=== PATIENT | female | born 1990 | race African-American/Black ===

== ENCOUNTER 2017-04-12 12:36 | Emergency (ER) | payer OTHER ==
[~2017-04-12] VITALS: Ht 175.3 cm; Wt 76.8 kg
[2017-04-12 12:37] VITALS: BP 124/70
[2017-04-12] MEDS ORDERED: LIDOCAINE W/EPINEPHRINE 1% 20ML VIAL SC ONE (14:15)
[2017-04-12] MEDS ORDERED: BACT800T5 PO (14:25)
[2017-04-12] MEDS ORDERED: NEOSPORIN OINT 0.9 GM PKT (FLOOR STOCK) As Ordered ONE (14:32)
== END 2017-04-12 14:36 | disposition home or self-care (01) ==
LOC: M ED 12:36
DX: J34.0 Abscess, furuncle and carbuncle of nose (principal)

== ENCOUNTER 2018-12-28 10:08 | Inpatient (IN) | payer OTHER ==
[~2018-12-28] VITALS: Ht 175.3 cm; Wt 86.0 kg
[2018-12-28] VITALS (41 sets, daily range): BP systolic 107–219; BP diastolic 55–88
[~2018-12-28 10:08] MED LIST: BACT800T5 PO
[2018-12-28] MEDS ORDERED: PRENTAB9 PO (10:24)
[2018-12-28] MEDS ORDERED: SERT25TA85 PO (10:24)
[2018-12-28] MEDS ORDERED: LACTATED RINGER'S 1000 ML IV ONE (11:30)
[2018-12-28] MEDS ORDERED: FENTANYL 2MCG/ML ROPIVACAINE 0.2% IN 0.9% NACL 100ML IVBAG As Ordered ONE (11:53)
[2018-12-28 12:11] LABS: HEMOGLOBIN 13.7 g/dl (12.0-15.5); MEAN CORPUSCULAR HEMOGLOBIN 27.4 pg (27.0-33.0); MEAN CORPUSCULAR HGB CONC 32.6 g/dl (32.0-36.5); PLATELET COUNT, AUTOMATED 158 10^3/uL (150-450); WHITE BLOOD COUNT 5.3 10^3/uL (4.0-10.0)
[2018-12-28] MEDS: LR 1,000 ML IV SCH ×2 (13:00→19:16)
--- NOTE | 2018-12-28 14:26 | HPE ---
DATE OF ADMISSION: 12/28/2018 This lady is a 28-year-old, 2, para 1, last menstrual period (LMP) 03/29/2018, estimated date of confinement (EDC) 01/03/2019, at 39 and 1 weeks of gestation with contractions since so 0400 this morning. They are 4 minutes apart, moderate intensity, loss of fluid and no vaginal bleeding. RISK FACTORS: She has anxiety, depression and her is deployed. PAST HISTORY: In 2008, at 37 weeks, had a spontaneous vaginal delivery, male, 8 pounds 3 ounces. LABS: O+. HIV negative. Hepatitis negative. RPR negative. Rubella immune. Varicella immune. Pap normal. Urine negative. Gonorrhea and chlamydia are negative. 1-hour glucose was 95. GBS is negative. Her blood pressure is 123/73, respirations 18, pulse 84, temperature 97.8. Urine 1.015, pH 6 and trace of blood. On examination, she appears distressed. Category 1 strip. moderate intensity, every 4 minutes. Symphysis fundus height is 40. Four quadrant bowel sounds. heart is 140. On pelvic examination, she is 4 cm, 100% effaced, -1 station and with bulging membranes. Our plan of management is to admit, category 1 strip, epidural as needed and anticipate progression. We discussed counseling regarding vaginal delivery, which is delivery through the vagina, possible assistance of forceps or vacuum if needed, for maternal indications forceps and vacuum device can assist with vaginal delivery when normal pushing efforts cannot achieve delivery on their own or when delivery is needed for emergency for baby's well-being, medications used to induce or augment labor in order to achieve vaginal delivery, episiotomy may be required to help baby deliver vaginally, you may also require repair of any lacerations or tears of your vagina or vulva that can occur at the time of delivery, in some cases emergencies can arise such as emergency section so quick that consent signs are not being able to be signed, however provider will discuss the emergency and necessity of section before they proceed for the safety of the mother and baby than continuing labor and only performed when clinically indicated. Risks of vaginal delivery include but not limited to bleeding, infection, injury to the vagina, pelvic structures, injury to baby, damage to the uterus, reactions to anesthesia, uterine rupture, risk of hysterectomy for life-threatening bleeding conditions or . Medications used to induce or augment labor with increase risk of infection, tachysystole, uterine rupture, heart rate abnormalities, need for emergency section or possibly hysterectomy or hemorrhage. With the risks and benefits explained and the risk of using vacuum or forceps where baby can get scratches, hematomas on the head or intracranial bleed the patient expressed understanding of same and is anxious to proceed. We spent 30 minutes discussing and answering all questions.
[2018-12-28] MEDS ORDERED: LACTATED RINGER'S 1000 ML IV PRN (14:30)
[2018-12-28] MEDS ORDERED: EPIDURAL/PCA KEYS XX PRN (14:30)
[2018-12-28] MEDS ORDERED: EPIDURAL COMMENT XX SCH (14:30)
[2018-12-28] MEDS ORDERED: FENTANYL/ROPIVACAINE/NACL BAG 100 ML EPIDURAL SCH (14:30)
[2018-12-28] MEDS ORDERED: diphenhydrAMINE INJ 50MG/ML VIAL (J1200) IV PRN (14:30)
[2018-12-28] MEDS ORDERED: REFRIGERATOR IV KEYS XX PRN (14:30)
[2018-12-28] MEDS ORDERED: ONDANSETRON 4MG/2ML VIAL (J2405) IV PRN (14:30)
[2018-12-28] MEDS ORDERED: NALOXONE INJ 0.4 MG/1 ML VIAL (J2310) IV PRN (14:30)
[2018-12-28] MEDS ORDERED: ePHEDrine SULFATE 25 MG/5 ML(5MG/ML) SYRINGE IV PRN (14:30)
[2018-12-28] MEDS ORDERED: OXYTOCIN 30 UNITS IN 0.9% NaCl 500ML IV BAG (J2590) As Ordered ONE ×2 (15:27→17:52)
--- NOTE | 2018-12-28 16:54 | IPN ---
DATE: 12/28/2018 This lady is a 28-year-old 2, para 1 admitted with contractions 4 minutes apart, moderate intensity. She had a spontaneous rupture of membranes at 1430 hours, clear liquor, contractions were a 3 minutes, moderate. She requested an epidural, which was placed but is not effective, and it needs to be readjusted. We will reevaluate this lady in 2 hours time.
--- NOTE | 2018-12-28 16:56 | IPN ---
DATE: 12/28/2018 This lady was admitted for contractions, had eventually spontaneous rupture of membranes, an epidural which was ineffective, she was topped up, still ineffective and reexamined her at 1600 hours. She is presently 9 cm, 0 station, category one strip, still having difficulty with the epidural. We are going to request that anesthesia come up and reevaluate and make her as comfortable as possible. The patient is not requiring any Pitocin, doing well on her own outside of the epidural not working, is safe to proceed,
[2018-12-28 17:18] LABS: CORD GAS HCO3 A 24.3 MEQ/L; CORD GAS TCO2 A 25.7 MEQ/L
[2018-12-28 17:19] LABS: CORD GAS ABE A -1.6; CORD GAS PCO2 A 45.2 mmHg; CORD GAS PH A 7.348 UNITS; CORD GAS PO2 A 10.6 mmHg
[2018-12-28 17:20] LABS: CORD GAS O2 SAT A < 15.0 %
[2018-12-28 17:22] LABS: CORD GAS ABE V -0.4; CORD GAS HCO3 V 22.6 MEQ/L; CORD GAS O2 SAT V 65.9 %; CORD GAS PCO2 V 32.9 mmHg; CORD GAS PH V 7.455 UNITS; CORD GAS PO2 V 25.8 mmHg; CORD GAS SBC V 23.3 MEQ/L; CORD GAS TCO2 V 23.6 MEQ/L
--- NOTE | 2018-12-28 17:38 | DN ---
DATE: 12/25/2018 This lady is a 28-year-old 2, para 1 admitted in active labor. She had an epidural in place, had over three pushes a spontaneous vaginal delivery of a male 8 pounds 13 ounces, 4010 grams, scores of 9 and 9 at one and five minutes respectively. Terminal meconium was noted at delivery. Placenta delivered spontaneously thereafter. Three vessels in the cord. Membranes and tissues intact. The vagina, anterior, posterior lateral palmer were intact. The cervix, which she must have been occiput posterior, had a thick bruised anterior lip, which came right down to the introitus. Uterus contracted well down on Pitocin. Arterial pH was 7.34, base excess -1.6, venous pH 7.45, base excess -0.4. The patient and baby tolerated procedure well.
[2018-12-28] MEDS ORDERED: OXYTOCIN INJ 10 UNITS/ML VIAL (J2590) As Ordered ONE (17:52)
[2018-12-28] MEDS ORDERED: ACETAMINOPHEN 500 MG TAB PO PRN (18:00)
[2018-12-28] MEDS ORDERED: OXYTOCIN INJ 10 UNITS/ML VIAL (J2590) IV ONE ×2 (18:00→18:15)
[2018-12-28] MEDS ORDERED: DIBUCAINE 1% OINTMENT 30GM TOP PRN (18:00)
[2018-12-28] MEDS ORDERED: ANUSOL HC CREAM 30GM TOP PRN (18:00)
[2018-12-28] MEDS ORDERED: MEASLES,MUMPS,RUBELLA VACCINE INJ (MMR-II) (90707) SC SCH (18:00)
[2018-12-28] MEDS ORDERED: DOCUSATE SODIUM 100 MG CAP PO PRN (18:00)
[2018-12-28] MEDS ORDERED: RHOGAM 300 MCG (1500 IU) INJ (J2790) IM SCH (18:00)
[2018-12-28] MEDS ORDERED: MOM 30ML SUSPENSION UDC PO PRN (18:00)
[2018-12-28] MEDS ORDERED: METHYLERGONOVINE MALEATE 0.2 MG TAB PO PRN (18:00)
[2018-12-28] MEDS ORDERED: ACETAMINOPHEN TAB 650MG DOSE (2X325MG) PO PRN (18:00)
[2018-12-28] MEDS ORDERED: IBUPROFEN 800 MG TAB PO PRN (18:00)
[2018-12-28] MEDS ORDERED: IBUPROFEN 600 MG TAB PO PRN (18:00)
[2018-12-28] MEDS ORDERED: OXYTOCIN DRIP 30 UNITS in APPROPRIATE DILUENT 1 EA IV ONE ×4 (18:15)
--- NOTE | 2018-12-28 18:47 | IPN ---
DATE: 12/28/2018 This patient requested circumcision of her male after discussing risks and benefits of circumcision, medical, nonmedical indications, penile block and aftercare. Expressed understanding of penile block, aftercare and bleeding, signed the consent form. All questions were answered. 20-minute discussion. Await clearance by the wrapper hand.
[2018-12-29 05:21] VITALS: BP 111/54
[2018-12-29 07:20] LABS: HEMATOCRIT 37.6 % (36.0-47.0); HEMOGLOBIN 12.6 g/dl (12.0-15.5); MEAN CORPUSCULAR HEMOGLOBIN 28.4 pg (27.0-33.0); MEAN CORPUSCULAR HGB CONC 33.5 g/dl (32.0-36.5); MEAN CORPUSCULAR VOLUME 84.9 fl (80.0-96.0); PLATELET COUNT, AUTOMATED 132 10^3/uL (150-450); RED BLOOD COUNT 4.43 10^6/uL (4.00-5.40); WHITE BLOOD COUNT 7.4 10^3/uL (4.0-10.0)
[2018-12-29] MEDS ORDERED: PRENATAL VITAMINS CHEWABLE TABLET PO SCH (09:00)
--- NOTE | 2018-12-29 09:21 | IPN ---
DATE: 12/29/2018 28-year-old 2, now para 2, had a spontaneous vaginal delivery male 8 pounds 13 ounces 4010 grams, of 9 and 9 at one and five minutes respectively. Arterial pH 7.34, base excess -1.6 Vital signs today: Blood pressure is 111/54, respirations 18, pulse 76, temperature 98.4. Her admitting hemoglobin was 13.7, hematocrit 42.0, platelets were 158. On her first day we discussed phlebitis, cystitis, mastitis, endometritis, cellulitis, diet, exercise pain manage, perineal, breast and wound care. She does not know what she wants to do for control and be discussed the 6-week checkup Rest examination unremarkable. Normocephalic, atraumatic. Neck: Full range of motion. Pupils equal and reactive to light. Distal pulses symmetric. No evidence of deep venous thrombosis (DVT), pulmonary embolus (PE) or superficial phlebitis. Chest is clear bilaterally bases. No wheezes or rhonchi. Abdomen: Soft for quadrant bowel sounds are noted. Uterus two below. Perineum is intact. She has no rashes, lesions or pruritus arthralgia, myalgia. No complaint of joint pain. No complaint of cough, wheeze, shortness of breath or dyspnea on exertion. She has no nausea, vomiting, diarrhea or constipation. No urgency or frequency. In summary we have a term gestation delivered a live male infant. Plans are for discharge tomorrow. Contraception will be discussed a 6-week checkup and she will make an appointment at [facility].
[2018-12-29] MEDS ORDERED: ADACEL/BOOSTRIX VACCINE (DIPHTH/PERTUSS/ACELL/TETANUS)0.5ML SYR (90715) IM ONE (12:00)
[2018-12-29 18:00] VITALS: BP 120/63
[2018-12-30 06:00] VITALS: BP 120/58
[2018-12-30] MEDS ORDERED: ACET1TAB55 PO (10:10)
[2018-12-30] MEDS ORDERED: COLA100C5 PO (10:10)
--- NOTE | 2018-12-30 10:16 | OBDS ---
[facility] Obstetrical Discharge Sum. Obstetrical Discharge Summary Family Medicine Physician/Provider: HERBIE CANO DO Date: Dec 30, 2018 : 2 Term: 2 Livin VDRL: Non-Reactive A/P, Post Course List any complications Admission diagnosis: labor Discharge diagnosis: delivered Condition at Discharge: stable Discharge Instructions: [Home/other] Diet: [regular] Medications: [see med recs] Follow-up: [ 6wks visit] hospital course: patient admitted for labor, had uncomplicated delivery. course uncomplicated and patient discharged home on day #2. discharge exam: patient without concerns today. bleeding light. she is planning on breast feeding. no plans for contraceptive at this point as her spouse is deployed. vitals: reviewed, normal nad abd: nd, soft, nt, fundus firm at u-3 le: no edema/erythema/tenderness. a/p discharge instructions given. dc home with baby today. DO PRAKASH Cano LUAT N. DO Dec 30, 2018 10:16
== END 2018-12-30 10:55 | disposition home or self-care (01) | DRG 807 ==
LOC: M LDO 10:08 → M LDI 11:12 → M PED 21:30
PROVIDERS: ADMIT Obstetrics & Gynecology; ATTEND Obstetrics & Gynecology
PROC: 10E0XZZ Delivery of Products of Conception, External Approach (ICD-10-PCS; principal; 2018-12-28)
DX: O80 Encounter for full-term uncomplicated delivery (principal); Z37.0 Single live birth; Z3A.39 39 weeks gestation of pregnancy